=== PATIENT | female | born 1955 | race African-American/Black ===

== ENCOUNTER 2021-04-12 19:09 | Inpatient (IN) | payer MEDICAID ==
[~2021-04-12] VITALS: Ht 152.4 cm; Wt 110.8 kg
[2021-04-12] MEDS ORDERED: ACETAMINOPHEN 325 MG TAB PO ONE (20:00)
[2021-04-12 21:11] LABS: Basophils # (auto) 0 10 ^3/uL (0-0.2); Basophils % (auto) 1.2 % (0.0-2.0); Eosinophils # (auto) 0 10 ^3/uL (0-0.8); Eosinophils % (auto) 0.2 % (0.0-7.0); Hematocrit 41.8 % (36.0-46.0); Hemoglobin 13.6 g/dL (12.2-16.2); Lymphocytes # (auto) 1.2 10 ^3/uL (0.4-5.4); Lymphocytes % (auto) 31.6 % (10.0-50.0); Mean Corpuscular Hemoglobin 27.7 pg (28.0-32.0); Mean Corpuscular Hgb Conc. 32.5 g/dL (32.0-36.0); Mean Corpuscular Volume 85.3 fL (80.0-100.0); Monocytes # (auto) 0.6 10 ^3/uL (0-1.3); Monocytes % (auto) 15.4 % (0.0-12.0); Neutrophils % (auto) 51.6 % (37.0-80.0); Nucleated Red Blood Cells % 0.4 %; Red Cell Distribution Width 14.3 % (11.8-14.3); White Blood Cell 3.8 10^3/uL (4.4-10.8)
[2021-04-12 21:28] LABS: Albumin 3.3 g/dL (3.4-5.0); Calcium 9.1 mg/dL (8.5-10.1); Potassium 3.5 mmol/L (3.5-5.1)
[2021-04-12 21:44] LABS: BUN/Creatinine Ratio 13.4; Bilirubin, Total 0.5 mg/dL (0.2-1.0); Total Protein 8.3 g/dL (6.4-8.2)
[2021-04-12] MEDS: BUDESONIDE (INHALATION) 180 MCG IH IN SCH (22:17)
[2021-04-13] MEDS ORDERED: ACETAMINOPHEN 500 MG TAB PO PRN (03:30)
[2021-04-13] MEDS ORDERED: ALBUTEROL SULF HFA 90MCG INH 200DOSE IN PRN (03:30)
[2021-04-13] MEDS ORDERED: ONDANSETRON HCL 4 MG/2 ML VIAL IV PRN (03:30)
[2021-04-13] MEDS ORDERED: DOCUSATE SOD 100 MG CAP PO PRN (03:30)
[2021-04-13] MEDS ORDERED: NITROGLYCERIN 0.4 MG SL TAB SL PRN (06:00)
[2021-04-13] MEDS ORDERED: MORPHINE SULFATE INJECTION 2 MG/ML SYRG IV PRN (06:00)
[2021-04-13] MEDS: SODIUM CHLOR 0.9% PF (SALINE LOCK) 10ML VIAL/SYR IV SCH ×3 (06:03→21:30)
[2021-04-13 06:47] LABS: Basophils # (auto) 0 10 ^3/uL (0-0.2); Basophils % (auto) 1.2 % (0.0-2.0); Eosinophils # (auto) 0 10 ^3/uL (0-0.8); Eosinophils % (auto) 0.3 % (0.0-7.0); Hematocrit 36.2 % (36.0-46.0); Lymphocytes % (auto) 35.4 % (10.0-50.0); Mean Corpuscular Hemoglobin 28.3 pg (28.0-32.0); Mean Corpuscular Hgb Conc. 33.3 g/dL (32.0-36.0); Mean Corpuscular Volume 84.9 fL (80.0-100.0); Monocytes # (auto) 0.4 10 ^3/uL (0-1.3); Monocytes % (auto) 12.7 % (0.0-12.0); Neutrophils # (auto) 1.4 10 ^3/uL (1.6-8.6); Neutrophils % (auto) 50.4 % (37.0-80.0); Nucleated Red Blood Cells % 0.1 %; Red Blood Cells 4.26 10^6/uL (4.0-5.20); Red Cell Distribution Width 14.5 % (11.8-14.3); White Blood Cell 2.8 10^3/uL (4.4-10.8)
[2021-04-13 06:58] LABS: Albumin 2.6 g/dL (3.4-5.0); BUN/Creatinine Ratio 15.9; Calcium 7.5 mg/dL (8.5-10.1)
[2021-04-13 07:02] LABS: Bilirubin, Total 0.4 mg/dL (0.2-1.0); Total Protein 6.5 g/dL (6.4-8.2)
[2021-04-13 07:09] LABS: Potassium 2.8 mmol/L (3.5-5.1)
[2021-04-13] MEDS ORDERED: POTASSIUM CHL 20 Meq TABLET PO ONE (07:30)
[2021-04-13] MEDS ORDERED: POTASSIUM CHL 20MEQ/50ML 50 ML IV ONE ×2 (07:30→15:30)
[2021-04-13 08:20] VITALS: BP 135/93
[2021-04-13 08:22] VITALS: BP 135/93
[2021-04-13] MEDS: ASPirin 81 mg TAB PO SCH (09:32)
[2021-04-13] MEDS: ASCORBIC ACID 1,000 MG TAB PO SCH (09:32)
[2021-04-13] MEDS: MULTIPLE VITAMIN TAB PO SCH (09:32)
[2021-04-13] MEDS: CHOLECALCIFEROL (VITD3) 2,000 UNIT CAP/TAB PO SCH (09:32)
[2021-04-13] MEDS: AZITHROMYCIN 500MG/ 250ML 250 ML IV SCH (09:33)
[2021-04-13] MEDS: FAMOTIDINE (10MG/ML) 2ML VL IV SCH (09:33)
[2021-04-13] MEDS: DexAMETHasone SOD PHOS 10MG/1ML VIAL INJ IV SCH (09:33)
[2021-04-13] MEDS: ENOXAPARIN SOD 40 MG/0.4 ML SYRINGE SC SCH ×2 (09:34→22:00)
[2021-04-13] MEDS: ZINC SULFATE 220mg CAP or TAB PO SCH (09:34)
[2021-04-13] MEDS: BUDESONIDE (INHALATION) 180 MCG IH IN SCH (10:00)
[2021-04-13] MEDS: HYDROcodone-ACET 5/325MG TAB PO PRN (10:30)
[2021-04-13 13:00] VITALS: BP 143/88
[2021-04-13 17:00] VITALS: BP 134/85
[2021-04-13 18:28] LABS: BUN/Creatinine Ratio 15.3; Calcium 8.6 mg/dL (8.5-10.1); Potassium 4.7 mmol/L (3.5-5.1)
[2021-04-13] MEDS ORDERED: REMDESIVIR PER PHARMACY 0 ML IV SCH (19:00)
[2021-04-13 19:50] VITALS: BP 148/99
[2021-04-13] MEDS ORDERED: REMDESIVIR 200 MG in NS 210ml LOADING DOSE ADULT IV ONE (21:00)
[2021-04-13 22:00] VITALS: BP 148/99
[2021-04-14 05:00] VITALS: BP 145/90
[2021-04-14] MEDS: SODIUM CHLOR 0.9% PF (SALINE LOCK) 10ML VIAL/SYR IV SCH ×2 (06:01→13:28)
[2021-04-14 07:05] LABS: Hematocrit 37.4 % (36.0-46.0); Hemoglobin 12.4 g/dL (12.2-16.2); Mean Corpuscular Hemoglobin 28.1 pg (28.0-32.0); Mean Corpuscular Hgb Conc. 33.2 g/dL (32.0-36.0); Mean Corpuscular Volume 84.8 fL (80.0-100.0); Red Blood Cells 4.41 10^6/uL (4.0-5.20); Red Cell Distribution Width 14.2 % (11.8-14.3); White Blood Cell 3.7 10^3/uL (4.4-10.8)
[2021-04-14 07:19] LABS: Calcium 8.4 mg/dL (8.5-10.1); Potassium 4.2 mmol/L (3.5-5.1)
[2021-04-14 07:24] LABS: Albumin 2.7 g/dL (3.4-5.0); BUN/Creatinine Ratio 18.8; Bilirubin, Total 0.2 mg/dL (0.2-1.0); Total Protein 6.8 g/dL (6.4-8.2)
[2021-04-14 07:34] LABS: Band Neutrophils % (manual) 0; Basophils % (manual) 0 (0.0-2.0); Blast Cells 0; Eosinophils % (manual) 0 (0-7); Metamyelocytes % 0; Myelocytes % 0; Promyelocytes % 0; Reactive Lymphocytes 0
[2021-04-14 08:10] VITALS: BP 131/74
[2021-04-14] MEDS: BUDESONIDE (INHALATION) 180 MCG IH IN SCH (08:11)
[2021-04-14] MEDS: ASPirin 81 mg TAB PO SCH (09:21)
[2021-04-14] MEDS: ZINC SULFATE 220mg CAP or TAB PO SCH (09:21)
[2021-04-14] MEDS: MULTIPLE VITAMIN TAB PO SCH (09:21)
[2021-04-14] MEDS: ASCORBIC ACID 1,000 MG TAB PO SCH (09:21)
[2021-04-14] MEDS: FAMOTIDINE (10MG/ML) 2ML VL IV SCH (09:22)
[2021-04-14] MEDS: DexAMETHasone SOD PHOS 10MG/1ML VIAL INJ IV SCH (09:22)
[2021-04-14] MEDS: AZITHROMYCIN 500MG/ 250ML 250 ML IV SCH (09:22)
[2021-04-14] MEDS: CHOLECALCIFEROL (VITD3) 2,000 UNIT CAP/TAB PO SCH (09:22)
[2021-04-14] MEDS: ENOXAPARIN SOD 40 MG/0.4 ML SYRINGE SC SCH (09:23)
[2021-04-14 12:00] VITALS: BP 152/85
[2021-04-14 12:55] LABS: Lymphocytes % (manual) 38 (10.0-50.0); Monocytes % (manual) 12 (0-12)
[2021-04-14] MEDS: HYDROcodone-ACET 5/325MG TAB PO PRN (14:48)
[2021-04-14] MEDS ORDERED: REMDESIVIR 100mg 100 MG in SODIUM CHL 0.9% 230 ML IV SCH (15:00)
[2021-04-14 16:00] VITALS: BP 162/95
[2021-04-14] MEDS ORDERED: ALBUAER3 IN (16:00)
[2021-04-14] MEDS ORDERED: DEXA6TAB6 PO (16:00)
== END 2021-04-14 18:50 | disposition home or self-care (01) | DRG 137 ==
LOC: ER 19:11 → OVERFLOW 04-13 05:53 → WEST WING 04-13 08:18
PROVIDERS: ADMIT Nurse Practitioner Family; ATTEND Internal Medicine
PROC: XW033E5 Introduction of Remdesivir Anti-infective into Peripheral Vein, Percutaneous Approach, New Technology Group 5 (ICD-10-PCS; principal; 2021-04-13)
DX: U07.1 COVID-19 (principal); J96.01 Acute respiratory failure with hypoxia; J12.82 Pneumonia due to coronavirus disease 2019; E66.01 Morbid (severe) obesity due to excess calories; I10 Essential (primary) hypertension; J98.11 Atelectasis; R73.03 Prediabetes; Z82.0 Family history of epilepsy and other diseases of the nervous system; Z82.49 Family history of ischemic heart disease and other diseases of the circulatory system; Z82.5 Family history of asthma and other chronic lower respiratory diseases; Z83.3 Family history of diabetes mellitus; Z23 Encounter for immunization; Z68.42 Body mass index [BMI] 45.0-49.9, adult
CPT/HCPCS: 36415; 71045; 80048; 80053; 83036; 83735; 83880; 84484; 85007; 85025; 85027; 85379; 87426; 93005; 94640; G0378; J1100; J3490